=== PATIENT | female | born 1965 | race Caucasian/White ===

== ENCOUNTER 2017-09-05 17:22 | Emergency (ER) | payer OTHER, MEDICAID ==
[~2017-09-05] VITALS: Ht 165.1 cm; Wt 145.9 kg
[~2017-09-05 17:22] MED LIST: GABA300C5 PO; LABE100T2 PO; LEVO50TA4 PO; LISI20TA PO; METF500T PO
[2017-09-05 17:25] VITALS: BP 173/74; PULSE 83; RESP 14; TEMP 98.4; O2SAT 97
[2017-09-05 17:52] LABS: AUTOMATED NEUTROPHIL # 3.9 TH/MM3 (1.8-7.7); BASOPHIL # 0.1 TH/MM3 (0-0.2); BASOPHIL % 0.9 % (0.0-2.0); EOSINOPHIL # 0.2 TH/MM3 (0-0.4); HEMATOCRIT 39.2 % (35.0-46.0); HEMOGLOBIN 13.1 GM/DL (11.6-15.3); LYMPH % 37.5 % (9.0-44.0); LYMPHOCYTE # 2.8 TH/MM3 (1.0-4.8); MEAN CELL VOLUME 88.6 FL (80.0-100.0); MEAN CORPUSCULAR HEMOGLOBIN 29.6 PG (27.0-34.0); MEAN CORPUSCULAR HGB CONC 33.4 % (32.0-36.0); MEAN PLATELET VOLUME 8.8 FL (7.0-11.0); MONO % 7.3 % (0.0-8.0); MONOCYTE # 0.6 TH/MM3 (0-0.9); NEUT % 51.3 % (16.0-70.0); PLATELET COUNT 312 TH/MM3 (150-450); RED BLOOD COUNT 4.42 MIL/MM3 (4.00-5.30); WHITE BLOOD COUNT 7.6 TH/MM3 (4.0-11.0)
[2017-09-05 18:06] LABS: BICARBONATE 26.5 MEQ/L (21.0-32.0); CREATININE 1.33 MG/DL (0.50-1.00)
[2017-09-05] MEDS ORDERED: AUGM875T3 PO (20:15)
--- NOTE | 2017-09-05 20:20 | PD ---
HPI Chief Complaint: Skin Problem Time Seen by Provider: 20:04 Travel History International Travel<30 days: No Contact w/Intl Traveler<30days: No Traveled to known affect area: No History of Present Illness HPI 52-year-old white female presents to emergency department concern over an infection in her dog bite which she sustained over . She was initially seen at [facility] and it was sent to [place] to have a plastic surgeon repair her wound. The patient states now she had seen her doctor last week and was placed on doxycycline because she felt the wound was getting infected because it was becoming tender and swollen. She is a diabetic and takes metformin. Her sugars have been normal. She denies any fever or chills. No drainage. She states that her doctor felt that she may need to have an admission if her symptoms do not improve. PFSH Past Medical History Anxiety: Yes Depression: Yes Cancer: No Cardiovascular Problems: Yes Diabetes: Yes Endocrine: Yes Gastrointestinal Disorders: Yes Genitourinary: No Hypertension: Yes Immune Disorder: No Musculoskeletal: Yes Neurologic: No Psychiatric: Yes (ok now) Reproductive: No Respiratory: Yes Sleep Apnea: Yes (c-pap) Thyroid Disease: Yes Ulcer: Yes : 3 Past Surgical History Section: Yes Other Surgery: Yes (NECK SX) Social History Alcohol Use: No Tobacco Use: No Substance Use: No Allergies-Medications (Allergen,Severity, Reaction): Coded Allergies: No Known Allergies (Verified Allergy, Unknown, 08/23/17) Reported Meds & Prescriptions Reported Meds & Active Scripts Active Augmentin (Amoxicillin-Clavulanate) 875-125 Mg Tab 1 Tab PO BID Levothyroxine (Levothyroxine Sodium) 50 Mcg Tab 50 Mcg PO DAILY Lisinopril-Hctz 20-12.5 Mg Tab 1 Tab PO DAILY Metformin (Metformin HCl) 500 Mg Tab 500 Mg PO BIDPC With meals Reported Gabapentin 300 Mg Cap 300 Mg PO BID Labetalol (Labetalol HCl) 100 Mg Tab 100 Mg PO BID Review of Systems General / Constitutional: No: Fever Eyes: No: Visual changes HENT: No: Headaches Cardiovascular: No: Chest Pain or Discomfort Respiratory: No: Shortness of Breath Gastrointestinal: No: Abdominal Pain Genitourinary: No: Dysuria Musculoskeletal: No: Pain Skin: No Rash Neurologic: No: Weakness Psychiatric: No: Depression Endocrine: No: Polydipsia Hematologic/Lymphatic: No: Easy Bruising Physical Exam Narrative GENERAL: Well-developed, well-nourished in no acute distress. Nontoxic appearing. HEAD: Patient has a healing laceration to her right lower lip from a dog bite. The skin is hypertrophied. There is minimal erythema. Mild tenderness. No fluctuance or pointing. There is no drainage. I see no evidence of any surrounding erythema. EYES: Pupils equal round and reactive. Extraocular motions intact. No scleral icterus. No injection or drainage. ENT: TMs clear without erythema. The external auditory canals clear. Nose: clear . Posterior pharynx is pink and moist. No tonsillar edema or exudate. Uvula midline. Airway patent. NECK: Trachea midline.Supple, nontender, moves head freely. No central bony tenderness or spasm. CARDIOVASCULAR: Regular rate and rhythm without murmurs, gallops, or rubs. RESPIRATORY: Clear to auscultation. Breath sounds equal bilaterally. No wheezes , rales, or rhonchi. GASTROINTESTINAL: Abdomen soft, non-tender, nondistended. No hepato-splenomegaly , or palpable masses. No guarding. EXTREMITIES: No clubbing, cyanosis, or edema. No joint tenderness, effusion, or edema noted. BACK: Nontender without deformity or crepitance. No flank tenderness. Data Data Last Documented VS Vital Signs Date Time Temp Pulse Resp B/P (MAP) Pulse Ox O2 Delivery O2 Flow Rate FiO2 09/05/17 17:25 98.4 83 14 173/74 (107) 97 Orders Orders Complete Blood Count With Diff (09/05/17 17:28) Basic Metabolic Panel (Bmp) (09/05/17 17:28) Ed Discharge Order (09/05/17 20:14) Labs Laboratory Tests Test 09/05/17 17:10 White Blood Count 7.6 TH/MM3 Red Blood Count 4.42 MIL/MM3 Hemoglobin 13.1 GM/DL Hematocrit 39.2 % Mean Corpuscular Volume 88.6 FL Mean Corpuscular Hemoglobin 29.6 PG Mean Corpuscular Hemoglobin Concent 33.4 % Red Cell Distribution Width 14.0 % Platelet Count 312 TH/MM3 Mean Platelet Volume 8.8 FL Neutrophils (%) (Auto) 51.3 % Lymphocytes (%) (Auto) 37.5 % Monocytes (%) (Auto) 7.3 % Eosinophils (%) (Auto) 3.0 % Basophils (%) (Auto) 0.9 % Neutrophils # (Auto) 3.9 TH/MM3 Lymphocytes # (Auto) 2.8 TH/MM3 Monocytes # (Auto) 0.6 TH/MM3 Eosinophils # (Auto) 0.2 TH/MM3 Basophils # (Auto) 0.1 TH/MM3 CBC Comment DIFF FINAL Differential Comment Blood Urea Nitrogen 21 MG/DL Creatinine 1.33 MG/DL Random Glucose 112 MG/DL Calcium Level 9.0 MG/DL Sodium Level 140 MEQ/L Potassium Level 3.8 MEQ/L Chloride Level 107 MEQ/L Carbon Dioxide Level 26.5 MEQ/L Anion Gap 7 MEQ/L Estimat Glomerular Filtration Rate 42 ML/MIN MDM Medical Decision Making Medical Screen Exam Complete: Yes Emergency Medical Condition: Yes Medical Record Reviewed: Yes Differential Diagnosis MDM: High Differential diagnoses: Abscess, folliculitis, cellulitis, lymphangitis, abrasion, contact dermatitis, infected dog bite Narrative Course Patient's laboratory tests have been reviewed. Her CBC and chemistry are within limits. Her exam does not reveal any obvious gross infection. I've agreed to put her on Augmentin. I do not believe any additional imaging or testing is a car at this time. She is encouraged to follow-up with her plastic surgeon tomorrow for recheck. Recheck dog bite Diagnosis Primary Impression: recheck dog bite Patient Instructions: General Instructions Departure Forms: Tests/Procedures, Work Release Special Instructions: No work 09/06/17 Additional Instructions: Rest. Warm compresses. Tylenol or Advil. Augmentin. Follow-up with your plastic surgeon tomorrow. Med/Other Pt SpecificInfo: Prescription(s) given Scripts Amoxicillin-Clavulanate (Augmentin) 875-125 Mg Tab 1 TAB PO BID for Infection, #20 TAB 0 Refills Prov: Melinda Shields MD 09/05/17 Disposition: 01 DISCHARGE HOME Condition: Stable Ti Barrett Sep 05, 2017 20:20
== END 2017-09-05 20:40 | disposition home or self-care (01) ==
LOC: NEPD 17:22
DX: S01.551D Open bite of lip, subsequent encounter (principal); E11.9 Type 2 diabetes mellitus without complications; I10 Essential (primary) hypertension; W54.0XXD Bitten by dog, subsequent encounter; Z79.84 Long term (current) use of oral hypoglycemic drugs
CPT/HCPCS: 80048; 85025; 99283

== ENCOUNTER 2018-05-15 06:02 | Observation (INO) ==
[2018-05-15] MEDS ORDERED: Sodium Chlor 0.9% Inj 250 ML ONE (06:52)
[2018-05-15] MEDS ORDERED: Chlorhexidine Gluconate 2% 1 Pack (2 Cloths) TOPICAL SCH (07:15)
[2018-05-15] MEDS ORDERED: Metoprolol Tartrate 25 MG Tablet PO SCH (07:15)
[2018-05-15] MEDS ORDERED: Propofol Inj 500 MG/50 ML Vial ONE ×2 (07:17→09:36)
[2018-05-15] MEDS ORDERED: Famotidine PF Inj 20 MG/2 ML Vial ONE (07:49)
[2018-05-15] MEDS ORDERED: Vancomycin Inj 1,000 MG in Sodium Chlor 0.9% Inj 250 ML IV.SIG SCH (08:00)
[2018-05-15] MEDS ORDERED: Sodium Chlor 0.9% Inj 500 ML IV.SIG SCH (08:00)
[2018-05-15] MEDS ORDERED: Ketamine Inj 50 MG/5 ML Syringe IV.PUSH ONE ×2 (08:08→09:38)
[2018-05-15] MEDS ORDERED: Bupivacaine/Epinephrine 0.5% Inj 50 ML Vial ONE (08:35)
[2018-05-15] MEDS ORDERED: Gelatin Size 100 Topical Foam ONE (08:36)
[2018-05-15] MEDS ORDERED: Thrombin Topical Soln 5,000 UNIT Vial TOPICAL ONE (08:36)
[2018-05-15] MEDS ORDERED: Dextrose 50% in Water 50 ML Vial IV.PUSH PRN (11:38)
[2018-05-15] MEDS ORDERED: Zolpidem Tartrate 5 MG Tablet PO PRN (11:39)
[2018-05-15] MEDS ORDERED: Acetaminophen 325 MG Tablet PO PRN (11:39)
[2018-05-15] MEDS ORDERED: Morphine Inj 4 MG/ML Vial IV.PUSH PRN (11:39)
[2018-05-15] MEDS ORDERED: Menthol 5.8 MG Lozenge BUCCAL PRN (11:39)
[2018-05-15] MEDS ORDERED: Aluminum/Magnesium/Simethacone Susp 30 ML UDC PO PRN (11:39)
[2018-05-15] MEDS ORDERED: Bisacodyl 10 MG Supp RECTAL PRN (11:39)
--- NOTE | 2018-05-15 11:47 | P.OP ---
- Preoperative Diagnosis (1) Degenerative cervical spinal stenosis (2) Cervical radiculopathy (3) Chronic neck pain Date of procedure: 05/15/18 Procedure: Anterior cervical C5-6 microdiscectomy with interbody fusion; anterior C5-6 cervical plate placement; removal of his C6-7 cervical plate; C5-6 interbody cage placement; microsurgical technique Anesthesia: CHRISTIN Surgeon: Saul Lindsay MD Shoveler: Charla Delgado Estimated blood loss (mL): 50 Operation and Findings: Following administration of general endotracheal anesthesia, the patient received a gram of vancomycin and Decadron 10 mg intravenously. Sequential compression devices were placed in supine position on a Brodie table and all pressure points adequately padded. The head secured in a donut and anterior cervical region then shaved and prepped with Chloraprep and sterilely draped with Ioban along with the usual sterile draping. A transverse skin incision on the left side of the neck was then made after infiltrating the skin with 0.5% Marcaine with epinephrine solution extending down through the platysma. At the anterior border of the sternocleidomastoid further dissection was undertaken developing a plane between the carotid sheath laterally and the trachea esophagus medially. The prevertebral fascia was exposed and dissected out. The medial attachments of the longus colli muscles were detached and a self- retaining retractor used for exposure. The C5-6 disc space was localized with a marking the disc space and using lateral fluoroscopy. [place] distraction screws 14 mm length were placed one in the C5 and one in the C6 body interbody distraction and exposure. There was significant disc degeneration with disc height collapse and cervical plate from the previous surgery noted at the C6-7 level. The plate screw locking mechanisms were then disengaged and the screw was removed along with the plate and solid C6-7 interbody fusion was evident. At the C5-6 level the osteophytes were resected with a Leksell and annulus incised with a 15 blade and further dissection undertaken using microtechnique with microscope magnification. Diskectomy was undertaken with pituitaries and the endplates were also decorticated with curettes and drill bit. And more posteriorly there was disk osteophyte complex compressing the thecal sac along with a significant uncovertebral joint hypertrophy with foraminal stenosis which was decompressed along with removal of the posterior longitudinal ligament. The foramen was decompressed bilaterally using a Kerrison's and palpation with a nerve hook, the exiting nerve roots were felt to be free. The area was then copiously irrigated. I then placed a Peek cage packed with local autograft bone at the C5-6 interspace under fluoroscopy guidance. [place] distraction pins were removed and the holes plugged with Gelfoam for hemostasis. In order to facilitate the fusion and provide stabilization, a Precision spine cervical plate was then placed with two 14 mm variable angle screws in the C5 body and two 14 mm screws in the C6 body. The plate screw locking mechanism was then engaged. AP and lateral fluoroscopy confirmed good placement of the construct and the retractor was then removed. Muscular bleeding points were cauterized with bipolar cautery and Gelfoam was then also used for hemostasis which was removed. The platysma was then approximated using 3-0 Vicryl interrupted stitches and 3-0 Vicryl subcuticular stitch also placed in an interrupted fashion, and final skin closure was with Mastisol and Steri- Strips. Sterile dressing was then applied. The patient was then extubated and taken to the recovery room. There are no intraoperative complications and all sponge and needle counts were correct at the end of procedure. Estimated blood loss was about 50 cc. The patient did undergo intraoperative neurologic monitoring which remained stable throughout the surgery.
[2018-05-15] MEDS ORDERED: Sod Chloride 0.9% Inj 1,000 ML IV.SIG ONE (12:00)
[2018-05-15] MEDS ORDERED: Lidocaine PF 1% Inj 5 ML Syringe INFILTRATN ONE (12:00)
[2018-05-15] MEDS ORDERED: Phenylephrine/NS 1000 MCG/10ML Syringe IV.PUSH ONE (12:00)
[2018-05-15] MEDS ORDERED: Succinylcholine Inj 100 MG/5 ML Syringe IV.PUSH ONE (12:00)
[2018-05-15] MEDS ORDERED: fentaNYL Citrate Inj 100 MCG/2 ML Ampul ONE (12:23)
--- NOTE | 2018-05-15 13:31 | XR ---
EXAM DATE: 05/15/2018 1:07 PM EDT AGE/SEX: 52 years / Female INDICATIONS: Hardware removal from C6-C7. Post-op C5-C6 anterior cervical fusion. CLINICAL DATA: This is the patient's initial encounter. Patient reports that signs and symptoms have been present for 1 day and indicates a pain score of Nonresponsive. MEDICAL/SURGICAL HISTORY: Non-responsive. Fusion, cervical. COMPARISON: [facility] [place] CERVICAL AP ONLY, 04/07/2011. . FINDINGS: Hardware has been removed at C6-C7. New fusion by history is present at C5-C6. Fluoroscopic spot films does not cover the entire cervical spine. CONCLUSION: Hardware as above. Dedicated lateral C-spine would be of benefit Electronically signed by: David Allen MD 05/15/2018 1:30 PM EDT
[2018-05-15] MEDS: Gabapentin 300 MG Capsule PO SCH ×2 (14:41→18:16)
[2018-05-15] MEDS: Sod Chloride 0.9% Inj 1,000 ML IV.SIG SCH (17:41)
[2018-05-15] MEDS: Insulin NovoLIN Regular Correctional Sugar Inj SQ SCH ×2 (18:15)
[2018-05-15] MEDS: Labetalol 100 MG Tablet PO SCH (20:53)
[2018-05-15] MEDS: Senna/Docusate Sodium 8.6/50 MG Tablet PO SCH (20:53)
[2018-05-15] MEDS ORDERED: IPRATROPIUM BROMIDE NASAL SCH (21:00)
[2018-05-16] MEDS: Insulin NovoLIN Regular Correctional Sugar Inj SQ SCH ×2 (00:58→06:29)
[2018-05-16 05:50] VITALS: RESP 18
[2018-05-16] MEDS ORDERED: Levothyroxine 50 MCG Tablet PO SCH (06:00)
[2018-05-16 09:00] VITALS: BP 98/57; PULSE 84; TEMP 98.4; O2SAT 93
[2018-05-16] MEDS ORDERED: Non-Formulary Drug (Lisinopril-Hydrochlorothiazide [Lisinopril-Hydrochlorothiazide] 1 TAB) PO SCH (09:00)
[2018-05-16] MEDS ORDERED: (Empagliflozin [Jardiance] 10 MG) PO SCH (09:00)
[2018-05-16] MEDS ORDERED: (Linaclotide [Linzess] 72 MCG) PO SCH (09:00)
[2018-05-16] MEDS ORDERED: Lisinopril 20 MG Tablet PO SCH (09:00)
[2018-05-16] MEDS: Sod Chloride 0.9% Inj 1,000 ML IV.SIG SCH (09:49)
[2018-05-16] MEDS: Labetalol 100 MG Tablet PO SCH (09:51)
[2018-05-16] MEDS: Senna/Docusate Sodium 8.6/50 MG Tablet PO SCH (09:51)
[2018-05-16] MEDS: Gabapentin 300 MG Capsule PO SCH (09:51)
--- NOTE | 2018-05-16 10:00 | P.PNNS ---
Subjective Interval history: Pt awake and alert. States incisional pain controlled. No radiculopathy or paresthesias in UEs. Pt states she is feeling more steady with ambulating. Pt wants to go home. Physical Exam Vital signs: Vital Signs 05/15/18 12:08 05/15/18 12:15 05/15/18 12:30 Temperature 98.5 F Pulse Rate 88 85 85 Respiratory Rate 21 20 18 Blood Pressure 145/81 H 154/84 H 151/77 H Pulse Oximetry 96 95 94 L 05/15/18 12:45 05/15/18 13:00 05/15/18 13:30 Temperature Pulse Rate 84 85 85 Respiratory Rate 20 20 20 Blood Pressure 150/71 H 148/71 H 149/71 H Pulse Oximetry 94 L 94 L 94 L 05/15/18 14:00 05/15/18 15:00 05/15/18 16:00 Temperature 98.4 F 99.3 F Pulse Rate 87 90 87 Respiratory Rate 19 19 19 Blood Pressure 152/77 H 165/78 H 165/78 H Pulse Oximetry 94 L 94 L 94 L 05/15/18 18:00 05/15/18 20:00 05/16/18 00:00 Temperature 98.7 F 98.3 F 98.4 F Pulse Rate 104 H 107 H 100 H Respiratory Rate 24 20 20 Blood Pressure 160/81 H 168/78 H 138/65 Pulse Oximetry 96 98 95 05/16/18 04:00 05/16/18 08:00 Temperature 97.1 F L 98.4 F Pulse Rate 113 H 84 Respiratory Rate 18 18 Blood Pressure 114/77 98/57 L Pulse Oximetry 96 93 L Intake & Output 05/15/18 05/16/18 05/16/18 18:59 06:59 18:59 Intake Total 2576 / 2576 200 / 200 Output Total 3650 / 3650 Balance -1074 / -1074 200 / 200 Weight 149.5 kg Intake: IV 1676 / 1676 200 / 200 NS + KCl 20 mEq Inj 1,000 ML @ 576 / 576 100 mls/hr IV.CONT .Q10H [facility] Rx #:[id number] LR 1000 mL Inj 1,000 ML @ 30 1000 / 1000 mls/hr IV.SIG .Q24H [facility] Rx#: [id number] Ancef Inj 1,000 MG In NS Inj 100 / 100 200 / 200 100 ML @ 200 mls/hr IV.SIG Q8H [facility] Rx#:[id number] Anesthesia Amount 900 / 900 Output: Estimated Blood Loss 50 / 50 Urine Amount (Catheter) 3600 / 3600 Indwelling Urethral Catheter 3600 / 3600 Other: # Voids 3 2 - Constitutional no acute distress, obese, cooperative - Routine HEENT Exam Head: Present: normocephalic, atraumatic Eye: Present: PERRL. Absent: conjunctival icterus ENT: Present: oropharynx clear - Routine Neck Exam Present: trachea midline - Routine Respiratory Exam Present: CTA bilaterally. Absent: respiratory distress, rhonchi, wheezes - Routine Cardiovascular Exam Present: RRR, S1, S2. Absent: murmur - Routine Abdominal Exam Present: soft, normoactive bowel sounds. Absent: tenderness - Routine Extremities Exam Present: cyanosis - Routine Skin Exam Absent: cyanosis, erythema - Routine Neurological Exam Present: alert, oriented X3, moving all extremities, normal speech. Absent: sensory deficit, motor deficit, altered mental status - Routine Psychiatric Exam Present: normal affect, cooperative, good insight, good judgment. Absent: agitated - Urinary Catheter Management Indwelling Urethral Catheter Cath placed during this visit: yes, but has since been removed by the nurse Reason for continuing: Other continuation reason Insertion date: 05/15/18 Insertion time: 08:45 Removal date: 05/15/18 Removal time: 18:00 Assessment and Plan - Assessment (1) Degenerative cervical spinal stenosis Code(s): M48.02 - Spinal stenosis, cervical region Status: Acute (2) Cervical radiculopathy Code(s): M54.12 - Radiculopathy, cervical region Status: Acute (3) Chronic neck pain Code(s): M54.2 - Cervicalgia; G89.29 - Other chronic pain Status: Acute - Plan 52 y/o FM s/p Anterior cervical C5-6 microdiscectomy with interbody fusion; anterior C5-6 cervical plate placement; removal of his C6-7 cervical plate; C5- 6 interbody cage placement; microsurgical technique. P: Pt doing well post op. D/C home. Discussed restrictions. Discussed incision care.
== END 2018-05-16 13:08 | disposition home or self-care (01) ==
LOC: INTOOBSV 06:02 → HSDI 06:02 → N05 16:49 → EDSTATUS 05-18 08:30
PROVIDERS: ADMIT Neurological Surgery; ATTEND Neurological Surgery

== ENCOUNTER 2018-08-27 18:53 | Inpatient (IN) ==
--- NOTE | 2018-08-27 19:19 | ED ---
HPI General Chief complaint: Abdominal Pain Stated complaint: Abd pain right side/nauseous Time Seen by Provider: 08/27/18 19:07 History of Present Illness HPI narrative: 53 y/o female with history of HTN, DM, hypothyroidism and GERD presents to the ED today from home complaining of RUQ abdominal pain and nausea. Pt reports symptoms began 5 days ago as mild, diffuse abdominal pain with associated right ear ache and sore throat. However over the past 2 days the abdominal pain has worsened and localized to the RUQ with radiation to the right flank. Pt describes this pain as a stabbing, 8/10 pain with no alleviating factors that worsens with eating and activity. Pain is not affected by bowel movements. Pt denies any fever, chills, chest pain, shortness of breath , vomiting, diarrhea, constipation, hematuria, dysuria, or hematochezia. Pt denies any history of similar symptoms. Pt surgical history is significant for multiple C sections and a tubal ligation. Related Data Home Medications Medication Instructions Recorded Confirmed atorvastatin 10 mg PO DAILY 05/09/18 08/27/18 cholecalciferol (vitamin D3) 1,000 unit PO DAILY 05/09/18 08/27/18 [Vitamin D3] cyanocobalamin (vitamin B-12) 500 mcg PO DAILY 05/09/18 08/27/18 [Vitamin B-12] cyclobenzaprine 10 mg PO TID PRN 05/09/18 08/27/18 doxycycline hyclate 100 mg PO DAILY 05/09/18 08/27/18 empagliflozin [Jardiance] 10 mg PO DAILY 05/09/18 08/27/18 gabapentin 300 mg PO TID 05/09/18 08/27/18 ipratropium bromide 2 spray INTRANASAL BID 05/09/18 08/27/18 labetalol 100 mg PO BID 05/09/18 08/27/18 levothyroxine 50 mcg PO DAILY 05/09/18 08/27/18 lisinopril-hydrochlorothiazide 1 tab PO DAILY 05/09/18 08/27/18 metformin 500 mg PO BID 05/09/18 08/27/18 tramadol 50 mg PO Q4-6H PRN 05/09/18 08/27/18 Allergies Allergy/AdvReac Type Severity Reaction Status Date / Time No Known Allergies Allergy Verified 08/27/18 19:02 Review of Systems Constitutional Denies chills and Denies fever(s) ENT Denies ear discharge, Denies hearing loss and Reports sore throat Cardiovascular Denies chest pain, Denies syncope, Denies edema and Denies palpitations Respiratory Denies cough, Denies dyspnea and Denies dyspnea on exertion Gastrointestinal Denies diarrhea, Reports nausea and Denies vomiting Genitourinary Denies hematuria, Denies dysuria and Denies flank pain Musculoskeletal Denies numbness and Denies tingling Neurologic Denies dizziness and Denies headache(s) [facility] Social History Social History Substance History: No History of Abuse Second Hand Smoke Exposure: No Smoking Status: Never smoker How Often Do You Have a Drink Containing Alcohol: Never Recent Travel in [facility] [[email or web address]] within the Last 8 Weeks: No Recent Out of Country Travel within the Last 8 Weeks: No Immunization History Tetanus Immunization: Unsure Exam Narrative Exam Narrative: GENERAL: Well appearing, morbidly obese female in no acute distress HEENT: Conj anicteric non erythematous. Bilateral TMs clear with no effusion or erythema, Oropharynx without erythema or exudate. Moist mucous membranes NECK: Supple, no JVD CARDIO: Regular rate and rhythm without murmurs rubs or gallops PULM: Clear to auscultation bilaterally with no wheezes, rales, or rhonchi ABDOMEN: Soft, nondistended abdomen with normal bowel sounds. Diffuse mild tenderness to palpation, most exquisite over the RUQ. No rebound or guarding BACK: Mild right sided CVA tenderness MSK: No deformities, no clubbing, no edema, no cyanosis NEURO: Cranial nerves grossly intact, no obvious motor deficits PSYCH: Alert and orientated x3; Normal judgment and appropiate affect GI Inspection: normal to inspection Palpation: soft, no guarding, not rigid and tender in the RUQ; not in the epigastrum, not in the LLQ, not in the RLQ, not in the LUQ, not at McBurney's point, not suprapubicly, Ta's sign negative and with no rebound tenderness Auscultation: normal bowel sounds Back/Spine/Pelvis Back: CVA tenderness (The patient has right-sided CVA tenderness on palpation.) Course Consultations Consultation #1: The patient's case including history, pertinent physical examination findings, and laboratory studies were discussed with Dr. Miller. He agreed to admit the patient for evaluation and plans to take the patient to the operating room in the morning. Time: 21:52 Initial Documented Vital Signs Temperature 97.3 F L 08/27/18 19:00 Pulse Rate 101 H 08/27/18 19:00 Respiratory Rate 18 08/27/18 19:00 Blood Pressure 221/95 H 08/27/18 19:00 Pulse Oximetry 98 08/27/18 19:00 Last Documented Vital Signs Temperature 97.3 F L 08/27/18 19:00 Pulse Rate 90 08/27/18 21:30 Respiratory Rate 17 08/27/18 21:30 Blood Pressure 145/65 H 08/27/18 21:30 Pulse Oximetry 97 08/27/18 21:30 Medical Decision Making MDM Narrative Medical decision making narrative: 53 y/o female with h/o HTN, DM, hyperlipid, GERD, and hypothyroidism presented to the ED today for RUQ pain and nausea. Symptoms progressed over the last 2 days to a stabbing 8/10 RUQ pain with radiation to the back. She reports pain is worse with food and therefore has had poor oral intake of both fluids and solids. Pt denied ny fever, chills, vomiting, chest pain, SOB, or any changes in bowels or bladder. Pt denies any history of similar symptoms or any history of abdominal surgery other than 3 C- sections and a tubal ligation. Upon arrival, vital signs were BP 221/95, HR 101 , RR 18, T 97.3, O2 96 on room air. On exam patient was well appearing and in no acute distress. Abdominal exam revealed mild diffuse tenderness, worse over the RUQ with accompanying right CVA tenderness. Cardiopulmonary exam was unremarkable. IV Morphine was administered for pain management and IV Zofran for nausea. IV 0.9% NS bolus was given due to her poor oral intake over the past few days. CBC , CMP, Lipase, coagulation studies, magnesium, CRP, UA, CXR, and EKG were initially ordered to further evaluate the patient's symptoms. CBC revealed mild leukocytosis 12.6 with left shift with no anemias or platelet abnormalities. CMP revealed decreased GFR of 62 stable to 1 year, creatine 0.94, and elevated glucose of 115 Troponin was negative. C-reactive protein elevated to 1.10 UA revealed small amounts of mucus without significant RBCs, WBCs, or bacteria. Culture was not indicated Coagulation studies within normal limits Magnesium within normal limits I, Dr. Alvares, have reviewed the medical student's documentation, and I am in agreement, met with the patient face to face, made the diagnosis, and the medical decision making was done by me. The patient was initially evaluated by Adam, the MS HARRY. Please see their complete history and physical. *My assessment and Findings: The patient presents with a history of abdominal pain that is been gradually worsening over the last 2 days. She reports that it worsens with eating. She reports having associated nausea without vomiting. The patient reports his pain is sharp in character. The patient's exam is remarkable for right upper quadrant abdominal pain. The patient does arrive hypertensive, however she reports missing her evening dose of blood pressure medication. She reports that she was afraid to take it related to nausea. Patient's initial blood pressure was 221/95, however after resting in the room, prior to pain medication even being administered the patient's blood pressure came down to 176 systolic and then after pain medication down to 146 systolic. During the course of the patient's emergency department visit, the patient's history, examination, and differential diagnosis were reviewed with the patient. The patient was placed on a continuing education dean with oximetry and frequent blood pressure monitoring. The patient had IV access obtained and blood work sent for analysis. The patient was initially provided normal saline of 500 mL bolus x1, Zofran 4 mg IV, morphine 4 mg IV. The patient's diagnostic studies were reviewed and remarkable for a leukocytosis with a white count of 12.6 with a left shift, neutrophil predominance of 75.8, PT 9.5, PTT 26.6, chemistry is remarkable for a GFR of 62 , glucose 115, troponin I less than 0.02, C-reactive protein 1.10, lipase within normal limits, urinalysis shows 500 glucose, rare bacteria. CT scan of the abdomen and pelvis shows distended gallbladder containing multiple stones with suspected wall edema and mild surrounding inflammation. Findings are suspicious for acute cholecystitis, mild atherosclerotic disease is also noted. The patient's case was discussed with the surgeon, Dr. Miller. He was agreeable with the plan for the patient to have Zosyn administered. He will admit the patient for continued evaluation and treatment. The patient's results were discussed with the patient, including the plan of care. I explained that further testing and/ or monitoring is indicated based on the patient's history, examination, and/ or laboratory findings. Therefore, I recommended admission for additional evaluation. The patient expressed understanding and was agreeable with this plan. The patient was admitted to the hospital in stable condition and sent to a bed under the care of Dr. Miller, the general surgeon. Medical Screen Exam Complete: Yes Emergency Medical Condition: Yes Medical Records Medical records reviewed: Yes I reviewed the patient's medical records. Lab Data Lab results reviewed: Yes I reviewed the patient's lab results. Result diagrams: 08/27/18 19:27 08/27/18 19:20 POC Results POC Urine Results Negative Lab Results 08/27/18 08/27/18 08/27/18 Range/Units 19:20 19:27 19:27 WBC 12.6 H (4.0-11.0) th/mm3 RBC 4.77 (4.00-5.30) mil/mm3 Hgb 14.0 (11.6-15.3) gm/dL Hct 42.0 (35.0-46.0) % MCV 88.0 (80.0-100.0) fL MCH 29.4 (27.0-34.0) pg MCHC 33.4 (32.0-36.0) % RDW 14.0 (11.6-17.2) % Plt Count 361 (150-450) th/mm3 MPV 8.6 (7.0-11.0) fL Neut % (Auto) 75.8 H (16.0-70.0) % Lymph % (Auto) 16.1 (9.0-44.0) % Cannon % (Auto) 5.5 (0.0-8.0) % Eos % (Auto) 2.1 (0.0-4.0) % Baso % (Auto) 0.5 (0.0-2.0) % Neut # (Auto) 9.5 H (1.8-7.7) th/mm3 Lymph # (Auto) 2.0 (1.0-4.8) th/mm3 Cannon # (Auto) 0.7 (0.0-0.9) th/mm3 Eos # (Auto) 0.3 (0.0-0.4) th/mm3 Baso # (Auto) 0.1 (0.0-0.2) th/mm3 WBC Differential . Differential Comment Auto diff final PT 9.5 L (9.8-11.6) sec INR 0.9 Ratio APTT 26.6 (23.4-31.7) sec Sodium 137 (136-145) meq/L Potassium 3.9 (3.5-5.1) meq/L Chloride 102 (98-107) meq/L Carbon Dioxide 28.8 (21.0-32.0) meq/L Anion Gap 6 (5-15) meq/L BUN 14 (7-18) mg/dL Creatinine 0.94 (0.50-1.00) mg/dL Estimated GFR 62 L (>89) mL/min Random Glucose 115 H (74-106) mg/dL Calcium 9.1 (8.5-10.1) mg/dL Magnesium 2.2 (1.5-2.5) mg/dL Total Bilirubin 0.5 (0.2-1.0) mg/dL AST 22 (15-37) U/L ALT 35 (10-53) U/L Alkaline Phosphatase 113 (45-117) U/L Troponin I Less than 0.02 L (0.02-0.05) ng/mL C-Reactive Protein 1.10 H (0.00-0.30) mg/dL Total Protein 8.3 H (6.4-8.2) g/dL Albumin 3.8 (3.4-5.0) g/dL Lipase 143 (73-393) U/L Urine Color (Yellw/Straw) Urine Clarity (Clear) Urine pH (5.0-8.5) Ur Specific [place] (1.002-1.035) Urine Protein (Neg-Trace) mg/dL Urine Glucose (UA) (Negative) mg/dL Urine Ketones (Negative) mg/dL Urine Occult Blood (Negative) Urine Nitrate (Negative) Urine Bilirubin (Negative) Urine Urobilinogen (Less than 2) mg/dL Ur Leukocyte Esterase (Negative) Urine RBC (0-3) /hpf Urine WBC (0-5) /hpf Ur Squamous Epith Cells (0-5) /hpf Urine Bacteria (None) /hpf Urine Mucus (Occasional) /lpf Micro UA Comment Ur Microscopic Review Urine Culture Comments 08/27/18 Range/Units 19:47 WBC (4.0-11.0) th/mm3 RBC (4.00-5.30) mil/mm3 Hgb (11.6-15.3) gm/dL Hct (35.0-46.0) % MCV (80.0-100.0) fL MCH (27.0-34.0) pg MCHC (32.0-36.0) % RDW (11.6-17.2) % Plt Count (150-450) th/mm3 MPV (7.0-11.0) fL Neut % (Auto) (16.0-70.0) % Lymph % (Auto) (9.0-44.0) % Cannon % (Auto) (0.0-8.0) % Eos % (Auto) (0.0-4.0) % Baso % (Auto) (0.0-2.0) % Neut # (Auto) (1.8-7.7) th/mm3 Lymph # (Auto) (1.0-4.8) th/mm3 Cannon # (Auto) (0.0-0.9) th/mm3 Eos # (Auto) (0.0-0.4) th/mm3 Baso # (Auto) (0.0-0.2) th/mm3 WBC Differential Differential Comment PT (9.8-11.6) sec INR Ratio APTT (23.4-31.7) sec Sodium (136-145) meq/L Potassium (3.5-5.1) meq/L Chloride (98-107) meq/L Carbon Dioxide (21.0-32.0) meq/L Anion Gap (5-15) meq/L BUN (7-18) mg/dL Creatinine (0.50-1.00) mg/dL Estimated GFR (>89) mL/min Random Glucose (74-106) mg/dL Calcium (8.5-10.1) mg/dL Magnesium (1.5-2.5) mg/dL Total Bilirubin (0.2-1.0) mg/dL AST (15-37) U/L ALT (10-53) U/L Alkaline Phosphatase (45-117) U/L Troponin I (0.02-0.05) ng/mL C-Reactive Protein (0.00-0.30) mg/dL Total Protein (6.4-8.2) g/dL Albumin (3.4-5.0) g/dL Lipase (73-393) U/L Urine Color Yellow (Yellw/Straw) Urine Clarity Clear (Clear) Urine pH 5.0 (5.0-8.5) Ur Specific [place] 1.014 (1.002-1.035) Urine Protein Negative (Neg-Trace) mg/dL Urine Glucose (UA) 500 or greater (Negative) mg/dL Urine Ketones Negative (Negative) mg/dL Urine Occult Blood Negative (Negative) Urine Nitrate Negative (Negative) Urine Bilirubin Negative (Negative) Urine Urobilinogen Less than 2 (Less than 2) mg/dL Ur Leukocyte Esterase Negative (Negative) Urine RBC Less than 1 (0-3) /hpf Urine WBC 1 (0-5) /hpf Ur Squamous Epith Cells 1 (0-5) /hpf Urine Bacteria Rare H (None) /hpf Urine Mucus Few H (Occasional) /lpf Micro UA Comment Culture not ind Ur Microscopic Review Not Reportable Urine Culture Comments Culture not ind Imaging Data Radiologist's impression: Chest X-Ray 08/27/18 19:20 CONCLUSION: No acute cardiopulmonary abnormality is identified. Abdomen/Pelvis CT 08/27/18 19:57 CONCLUSION: 1. Distended gallbladder containing multiple stones with suspected wall edema and mild surrounding inflammation. Findings are suspicious for acute cholecystitis. 2. Mild atherosclerotic disease. Discharge Plan Discharge Disposition Patient Disposition: ED Admit(ED Internal Use Only) Discharge Order Discharge Orders: ED Use Only Admit Order (Routine); Ordered 08/27/18 Ordered By: Brisa Alvares Discharge Details Diagnosis: Acute cholecystitis Physicians Team ED Provider: Brisa Alvares Primary Care Provider: Erika Lama Attending Provider: Gene Miller Status ED Status: Admitted Observation Patient
[2018-08-27] MEDS ORDERED: Sodium Chlor 0.9% Inj 500 ML IV.SIG ONE (19:20)
[2018-08-27] MEDS ORDERED: Morphine Inj 4 MG/ML Vial IV.PUSH ONE (19:20)
[2018-08-27 19:53] LABS: Baso # (Auto) 0.1 th/mm3 (0.0-0.2); Baso % (Auto) 0.5 % (0.0-2.0); Eos # (Auto) 0.3 th/mm3 (0.0-0.4); Eos % (Auto) 2.1 % (0.0-4.0); Lymph % (Auto) 16.1 % (9.0-44.0); Mean Corpuscular HGB Conc 33.4 % (32.0-36.0); Mean Corpuscular Hemoglobin 29.4 pg (27.0-34.0); Mean Platelet Volume 8.6 fL (7.0-11.0); Mono # (Auto) 0.7 th/mm3 (0.0-0.9); Mono % (Auto) 5.5 % (0.0-8.0); Neut # (Auto) 9.5 th/mm3 (1.8-7.7); Neut % (Auto) 75.8 % (16.0-70.0); Platelet Count 361 th/mm3 (150-450); Red Blood Count 4.77 mil/mm3 (4.00-5.30); White Blood Count 12.6 th/mm3 (4.0-11.0)
--- NOTE | 2018-08-27 19:58 | XR ---
EXAM DATE: 08/27/2018 7:49 PM EST AGE/SEX: 53 years / Female INDICATIONS: Abdominal pain. CLINICAL DATA: This is the patient's initial encounter. Patient reports that signs and symptoms have been present for 4 - 6 days and indicates a pain score of 8/10. MEDICAL/SURGICAL HISTORY: None. section. COMPARISON: [facility] [place], CTA CHEST W 3D RECON, 04/08/2011. [facility] [place], CHEST PA & LAT, 04/08/2011. . FINDINGS: Portable AP view of the chest demonstrates a normal-sized cardiac silhouette. No effusion, consolidat ion, or pneumothorax is identified. The bones and soft tissues demonstrate no acute finding. Cervical spine hardware is present. There is no free air in the visualized upper abdomen. CONCLUSION: No acute cardiopulmonary abnormality is identified. Electronically signed by: Butch Spence MD 08/27/2018 7:56 PM EST
[2018-08-27 19:59] LABS: Bacteria,Urine Rare /hpf; Bilirubin,Urine Negative (Negative); Clarity,Urine Clear (Clear); Color,Urine Yellow (Yellw/Straw); Glucose,Urine (UA) 500 or Greater mg/dL (Negative); Leukocyte Esterase,Urine Negative (Negative); Mucus,Urine Few /lpf (Occasional); Nitrite,Urine Negative (Negative); Specific Gravity,Urine 1.014 (1.002-1.035); Squamous Epithelial Cell,Urine 1 /hpf (0-5)
[2018-08-27 20:08] LABS: Activated Partial Thrombo Time 26.6 sec (23.4-31.7); INR 0.9 Ratio; Prothrombin Time 9.5 sec (9.8-11.6)
[2018-08-27 20:11] LABS: Albumin 3.8 g/dL (3.4-5.0); Anion Gap 6 meq/L (5-15); Aspartate Aminotransferase 22 U/L (15-37); Blood Urea Nitrogen 14 mg/dL (7-18); Calcium 9.1 mg/dL (8.5-10.1); Carbon Dioxide 28.8 meq/L (21.0-32.0); Chloride 102 meq/L (98-107); Glomerular Filtration Rate 62 mL/min (>89); Glucose,Random 115 mg/dL (74-106); Lipase 143 U/L (73-393); Magnesium 2.2 mg/dL (1.5-2.5); Potassium 3.9 meq/L (3.5-5.1); Sodium 137 meq/L (136-145)
[2018-08-27 20:12] LABS: Alanine Aminotransferase 35 U/L (10-53)
[2018-08-27 20:14] LABS: Alkaline Phosphatase 113 U/L (45-117); Total Protein 8.3 g/dL (6.4-8.2)
[2018-08-27] MEDS ORDERED: Piperacil/Tazo 3.375 GM Premix 50 ML IV.SIG ONE (21:33)
--- NOTE | 2018-08-27 21:44 | CT ---
EXAM DATE: 08/27/2018 9:23 PM EST AGE/SEX: 53 years / Female INDICATIONS: Right upper quadrant pain past 5 days. CLINICAL DATA: This is the patient's initial encounter. Patient reports that signs and symptoms have been present for 4 - 6 days and indicates a pain score of 8/10. MEDICAL/SURGICAL HISTORY: Diabetes mellitus type II. Inflammatory bowel disease. Hypertension . GERD Fusion, cervical. section. Tubal ligation. ORAL CONTRAST: No oral contrast ingested. RADIATION DOSE: 31.47 CTDI (mGy) ; Patient body habitus COMPARISON: No prior exams available for comparison. TECHNIQUE: Multiple contiguous axial images were obtained through the abdomen and pelvis following b olus infusion of 95 ml Omnipaque 350 (iohexol) nonionic water-soluble contrast as a single exam dos e. No oral contrast ingested. Using automated exposure control and adjustment of the mA and/or kV ac cording to patient size, radiation dose was kept as low as reasonably achievable to obtain optimal di agnostic quality images. DICOM format image data is available electronically for review and comparis on. FINDINGS: Lower chest: No acute abnormality is identified. Hepatobiliary: No focal liver lesion is identified. Hepatic vasculature demonstrates no abnormality. Gallbladder is distended and contains multiple stones. There is a questionable wall edema and surroun ding inflammation of the adjacent fat. There is a potential stone in the gallbladder neck. Kidneys: No hydronephrosis, stone, or mass. Adrenal Glands: Within normal limits. Spleen: Within normal limits. Pancreas: Within normal limits. Vascular: The aorta is nonaneurysmal. There is mild atherosclerotic disease. Bowel/Mesentery: The stomach and small bowel demonstrate no abnormality. No acute colon abnormality i s seen. There is no free intraperitoneal air or fluid. There is sigmoid diverticulosis. Appendix is n ormal. Abdominal Wall: There is a fat-containing periumbilical hernia. Retroperitoneum: No lymphadenopathy. Bladder: No wall thickening or mass. Reproductive: Within normal limits. Inguinal: No lymphadenopathy or hernia. Musculoskeletal: No acute osseous abnormality is identified. There are degenerative changes of the jacques mbar spine. CONCLUSION: 1. Distended gallbladder containing multiple stones with suspected wall edema and mild surrounding i nflammation. Findings are suspicious for acute cholecystitis. 2. Mild atherosclerotic disease. Electronically signed by: Butch Spence MD 08/27/2018 9:43 PM EST
[2018-08-27] MEDS ORDERED: Dextrose 50% in Water 50 ML Vial IV.PUSH PRN (22:46)
[2018-08-27] MEDS ORDERED: Morphine Sulfate Inj 2 MG/ML Vial IV.PUSH PRN (22:49)
[2018-08-28] MEDS: Sod Chloride 0.9% Inj 1,000 ML IV.CONT SCH ×3 (00:40→19:05)
[2018-08-28] MEDS: Ketorolac Inj 30 MG/ML (IVP) Vial IV.PUSH PRN ×4 (00:40→22:23)
[2018-08-28] MEDS: Insulin NovoLOG Aspart Correctional Sugar Inj SQ SCH ×4 (00:46→17:19)
[2018-08-28] MEDS: Piperacil/Tazo 3.375 GM Premix 50 ML IV.SIG SCH ×4 (06:41→22:20)
--- NOTE | 2018-08-28 08:35 | P.HPGS ---
History of Present Illness Service: General Surgery Primary Care Physician: Erika Lama MD History of Present Illness: 53 yo F morbid obesity BMI 55, diabetes mellitus type II, HTN, hyperlipidemia with epigastric abdominal pain x 4-5 days which has progressively worsened in severity becoming severe over the weekend and prompting visit to ED. Pain was associated with nausea and vomiting. She has never had this pain in the past but was months ago. Past surgical history includes multiple C-sections and a lower midline laparotomy for tubal ligation. - Diagnosis (1) Acute cholecystitis Review of Systems All other systems reviewed negative except as stated in HPI [facility] - History History Provided By: Patient - Medical History Medical History: Medical History (Last Reviewed 08/27/18 @ 19:02 by Jayden Degroot RN) Arthritis Back pain Constipation Diabetes GERD (gastroesophageal reflux disease) Herniated disc, cervical High cholesterol Hypertension Hyperthyroidism Irritable bowel disease Neck pain Spinal stenosis Wears glasses - Surgical History Surgical History: Surgical History (Last Reviewed 08/27/18 @ 19:02 by Jayden Degroot RN) History of History of carpal tunnel surgery History of fusion of cervical spine History of tubal ligation - Tobacco History Second Hand Smoke Exposure: No Smoking Status: Never smoker - Alcohol History How Often Do You Have a Drink Containing Alcohol: Never - Substance Use History Substance History: No History of Abuse - Travel History Recent Travel in the [place] Within the Last 8 Weeks: No Recent Travel Out of the Country Within the Last 8 Weeks: No - Immunization History Tetanus Immunization: Unsure Medications and Allergies Active Medications: Active Medications Acetaminophen (Tylenol) 650 mg PO Q4H PRN PRN Reason: Temp > 100.4 Atorvastatin Calcium (Lipitor) 10 mg PO DAILY [facility] Cyclobenzaprine HCl (Flexeril) 10 mg PO TID PRN PRN Reason: Pain Dextrose (D50w Vial) 50 ml IV.PUSH UNSCH PRN PRN Reason: PER HYPOGLYCEMIA PROTOCOL Gabapentin (Neurontin) 300 mg PO TID EUN Glucagon (Glucagon Inj) 1 mg OTHER PRN PRN PRN Reason: for Hypoglycemia Protocol Sodium Chloride (Ns Inj) 1,000 mls @ 100 mls/hr IV.CONT .Q10H EUN Last Admin: 08/28/18 00:40 Dose: 100 mls/hr Piperacillin/Tazobactam/Dextrose (Zosyn 3.375 Gm Premix) 50 mls @ 100 mls/hr IV.SIG Q6H [facility] Last Admin: 08/28/18 06:41 Dose: 100 mls/hr Insulin Aspart (Novolog Insulin Correctional Sugar Inj) 0 unit SQ Q6HR [facility]; Protocol Last Admin: 08/28/18 06:45 Dose: Not Given Ketorolac Tromethamine (Toradol Inj) 30 mg IV.PUSH Q6H PRN PRN Reason: PAIN SCALE 1 TO 10 Last Admin: 08/28/18 00:40 Dose: 30 mg Labetalol HCl (Trandate) 100 mg PO BID [facility] Levothyroxine Sodium (Synthroid) 50 mcg PO DAILY [facility] Morphine Sulfate (Morphine Inj) 4 mg IV.PUSH Q4H PRN PRN Reason: BREAKTHROUGH PAIN Non-Formulary Medication (Lisinopril-Hydrochlorothiazide [Lisinopril- Hydrochlorothiazide]) 1 tab PO DAILY [facility] Ondansetron HCl (Zofran Inj) 4 mg IV.PUSH Q6H PRN PRN Reason: NAUSEA OR VOMITING Sodium Chloride (Ns Flush) 2 ml IV.FLUSH PRN PRN PRN Reason: FLUSH AFTER USING IV ACCESS Last Admin: 08/28/18 00:41 Dose: 2 ml Sodium Chloride (Ns Flush) 2 ml IV.FLUSH BID [facility] Sodium Chloride (Ns Flush) 2 ml IV.FLUSH PRN PRN PRN Reason: FLUSH AFTER USING IV ACCESS Allergies Allergy/AdvReac Type Severity Reaction Status Date / Time No Known Allergies Allergy Verified 08/27/18 19:02 Home Medications Medication Instructions Recorded Confirmed Type atorvastatin 10 mg PO DAILY 05/09/18 08/27/18 History cholecalciferol (vitamin D3) 1,000 unit PO DAILY 05/09/18 08/27/18 History [Vitamin D3] cyanocobalamin (vitamin B-12) 500 mcg PO DAILY 05/09/18 08/27/18 History [Vitamin B-12] cyclobenzaprine 10 mg PO TID PRN 05/09/18 08/27/18 History doxycycline hyclate 100 mg PO DAILY 05/09/18 08/27/18 History empagliflozin [Jardiance] 10 mg PO DAILY 05/09/18 08/27/18 History gabapentin 300 mg PO TID 05/09/18 08/27/18 History ipratropium bromide 2 spray INTRANASAL BID 05/09/18 08/27/18 History labetalol 100 mg PO BID 05/09/18 08/27/18 History levothyroxine 50 mcg PO DAILY 05/09/18 08/27/18 History lisinopril-hydrochlorothiazide 1 tab PO DAILY 05/09/18 08/27/18 History metformin 500 mg PO BID 05/09/18 08/27/18 History tramadol 50 mg PO Q4-6H PRN 05/09/18 08/27/18 History Exam Vital signs: Vital Signs 08/27/18 19:00 08/27/18 19:39 08/27/18 20:15 Temperature 97.3 F L Pulse Rate 101 H 94 H Respiratory Rate 18 18 Blood Pressure 221/95 H 167/66 H Pulse Oximetry 98 96 97 08/27/18 21:30 08/27/18 23:35 08/28/18 04:00 Temperature 98.9 F 98.1 F Pulse Rate 90 99 H 88 Respiratory Rate 17 18 18 Blood Pressure 145/65 H 147/67 H 119/59 L Pulse Oximetry 97 92 L 95 08/28/18 08:00 Temperature 98.1 F Pulse Rate 93 H Respiratory Rate 17 Blood Pressure 131/74 Pulse Oximetry 95 Intake & Output 08/27/18 08/28/18 08/28/18 18:59 06:59 18:59 Intake Total 550 / 550 Balance 550 / 550 Weight 154.8 kg Intake: IV 550 / 550 Zosyn 3.375 GM Premix 50 ML @ 50 / 50 100 mls/hr IV.SIG ONCE ONE Rx#: [id number] NS Inj 500 ML @ Wide Open IV. 500 / 500 SIG BOLUS ONE Rx#:[id number] Oral 0 / 0 Other: # Voids 0 Weight On Admission 154.2 kg Narrative: GENERAL: Awake and alert. No acute distress. Cooperative. Morbidly obese. HEAD: Normocephalic. Atraumatic. EYES: Pupils equal round and reactive to light bilaterally. No scleral icterus. ENT: Moist oral mucosa. NECK: Trachea midline. CHEST: Nonlabored breathing. No respiratory distress. CARDIOVASCULAR: Regular rate and rhythm. ABDOMEN: Morbidly obese. Midline scar. Moderate to severe tenderness in the right upper quadrant. EXTREMITIES: No cyanosis or edema. SKIN: Warm, dry, nonjaundiced. Results - Labs 08/28/18 10:22 08/27/18 19:20 Laboratory Results - last 24 hr 08/27/18 08/27/18 08/27/18 19:20 19:27 19:27 WBC 12.6 H RBC 4.77 Hgb 14.0 Hct 42.0 MCV 88.0 MCH 29.4 MCHC 33.4 RDW 14.0 Plt Count 361 MPV 8.6 Neut % (Auto) 75.8 H Lymph % (Auto) 16.1 [place] % (Auto) 5.5 Eos % (Auto) 2.1 Baso % (Auto) 0.5 Neut # (Auto) 9.5 H Lymph # (Auto) 2.0 [place] # (Auto) 0.7 Eos # (Auto) 0.3 Baso # (Auto) 0.1 WBC Differential . Differential Comment Auto diff final PT 9.5 L INR 0.9 APTT 26.6 Sodium 137 Potassium 3.9 Chloride 102 Carbon Dioxide 28.8 Anion Gap 6 BUN 14 Creatinine 0.94 Estimated GFR 62 L POC Glucose Random Glucose 115 H Calcium 9.1 Magnesium 2.2 Total Bilirubin 0.5 AST 22 ALT 35 Alkaline Phosphatase 113 Troponin I Less than 0.02 L C-Reactive Protein 1.10 H Total Protein 8.3 H Albumin 3.8 Lipase 143 Urine Color Urine Clarity Urine pH Ur Specific [place] Urine Protein Urine Glucose (UA) Urine Ketones Urine Occult Blood Urine Nitrate Urine Bilirubin Urine Urobilinogen Ur Leukocyte Esterase Urine RBC Urine WBC Ur Squamous Epith Cells Urine Bacteria Urine Mucus Micro UA Comment Ur Microscopic Review Urine Culture Comments 08/27/18 08/28/18 08/28/18 19:47 00:27 06:44 WBC RBC Hgb Hct MCV MCH MCHC RDW Plt Count MPV Neut % (Auto) Lymph % (Auto) [place] % (Auto) Eos % (Auto) Baso % (Auto) Neut # (Auto) Lymph # (Auto) [place] # (Auto) Eos # (Auto) Baso # (Auto) WBC Differential Differential Comment PT INR APTT Sodium Potassium Chloride Carbon Dioxide Anion Gap BUN Creatinine Estimated GFR POC Glucose 147 H 136 H Random Glucose Calcium Magnesium Total Bilirubin AST ALT Alkaline Phosphatase Troponin I C-Reactive Protein Total Protein Albumin Lipase Urine Color Yellow Urine Clarity Clear Urine pH 5.0 Ur Specific [place] 1.014 Urine Protein Negative Urine Glucose (UA) 500 or greater Urine Ketones Negative Urine Occult Blood Negative Urine Nitrate Negative Urine Bilirubin Negative Urine Urobilinogen Less than 2 Ur Leukocyte Esterase Negative Urine RBC Less than 1 Urine WBC 1 Ur Squamous Epith Cells 1 Urine Bacteria Rare H Urine Mucus Few H Micro UA Comment Culture not ind Ur Microscopic Review Not Reportable Urine Culture Comments Culture not ind - Imaging Imaging: ITS Impressions Chest X-Ray 08/27/18 19:20 CONCLUSION: No acute cardiopulmonary abnormality is identified. Abdomen/Pelvis CT 08/27/18 19:57 CONCLUSION: 1. Distended gallbladder containing multiple stones with suspected wall edema and mild surrounding inflammation. Findings are suspicious for acute cholecystitis. 2. Mild atherosclerotic disease. CT scan - abdomen: report reviewed, image reviewed CT scan - pelvis: report reviewed, image reviewed Caprini VTE Risk Assessment Caprini VTE Risk Assessment: No/Low Risk (score <= 1) Caprini Risk Assessment Model: Point Value = 1 Point Value = 2 Point Value = 3 Point Value = 5 Age 41-60 Minor surgery BMI > 25 kg/m2 Swollen legs Varicose veins or History of unexplained or recurrent spontaneous Oral contraceptives or hormone replacement Sepsis (< 1 month) Serious lung disease, including pneumonia (< 1 month) Abnormal pulmonary function Acute myocardial infarction Congestive heart failure (< 1 month) History of inflammatory bowel disease Medical patient at bed rest Age 61-74 Arthroscopic surgery Major open surgery (> 45 min) Laparoscopic surgery (> 45 min) Malignancy Confined to bed (> 72 hours) Immobilizing plaster cast Central venous access Age >= 75 History of VTE Family history of VTE Factor V Leiden Prothrombin 19120A Lupus anticoagulant Anticardiolipin antibodies Elevated serum homocysteine Heparin-induced thrombocytopenia Other congenital or acquired thrombophilia Stroke (< 1 month) Elective arthroplasty Hip, pelvis, or leg fracture Acute spinal cord injury (< 1 month) Prophylaxis Regimen: Total Risk Factor Score Risk Level Prophylaxis Regimen 0-1 Low Early ambulation 2 Moderate Order ONE of the following: *Sequential Compression Device (SCD) *Heparin 5000 units SQ BID 3-4 Higher Order ONE of the following medications: *Heparin 5000 units SQ TID *Enoxaparin/Lovenox 40 mg SQ daily (WT < 150 kg, CrCl > 30 mL/min) *Enoxaparin/Lovenox 30 mg SQ daily (WT < 150 kg, CrCl > 10-29 mL/min) *Enoxaparin/Lovenox 30 mg SQ BID (WT < 150 kg, CrCl > 30 mL/min) AND/OR *Sequential Compression Device (SCD) 5 or more Highest Order ONE of the following medications: *Heparin 5000 units SQ TID (Preferred with Epidurals) *Enoxaparin/Lovenox 40 mg SQ daily (WT < 150 kg, CrCl > 30 mL/min) *Enoxaparin/Lovenox 30 mg SQ daily (WT < 150 kg, CrCl > 10-29 mL/min) *Enoxaparin/Lovenox 30 mg SQ BID (WT < 150 kg, CrCl > 30 mL/min) AND *Sequential Compression Device (SCD) Assessment and Plan - Assessment (1) Acute cholecystitis Code(s): K81.0 - Acute cholecystitis Status: Acute - Plan 53 yo F with acute cholecystitis. Pain has been for 4-5 days. She is morbidly obese with BMI 55. Will attempt nonop management at this time with IV antibiotics and plan surgery in approx 6 weeks. H&P: Quality - VTE Deep Vein Thrombosis/Pulmonary Embolism Present on Admission: No
[2018-08-28] MEDS ORDERED: Non-Formulary Drug (Lisinopril-Hydrochlorothiazide [Lisinopril-Hydrochlorothiazide] 1 TAB) PO SCH (09:00)
[2018-08-28 11:06] LABS: Baso % (Auto) 0.3 % (0.0-2.0); Eos % (Auto) 0.5 % (0.0-4.0); Hematocrit 36.9 % (35.0-46.0); Hemoglobin 12.5 gm/dL (11.6-15.3); Lymph # (Auto) 1.6 th/mm3 (1.0-4.8); Lymph % (Auto) 15.3 % (9.0-44.0); Mean Corpuscular HGB Conc 33.9 % (32.0-36.0); Mean Corpuscular Hemoglobin 30.3 pg (27.0-34.0); Mean Corpuscular Volume 89.4 fL (80.0-100.0); Mean Platelet Volume 8.6 fL (7.0-11.0); Mono # (Auto) 0.7 th/mm3 (0.0-0.9); Mono % (Auto) 7.1 % (0.0-8.0); Neut % (Auto) 76.8 % (16.0-70.0); Platelet Count 258 th/mm3 (150-450); Red Blood Count 4.12 mil/mm3 (4.00-5.30); White Blood Count 10.5 th/mm3 (4.0-11.0)
[2018-08-28] MEDS: Gabapentin 300 MG Capsule PO SCH ×3 (12:08→18:39)
[2018-08-28] MEDS: Lisinopril 20 MG Tablet PO SCH (12:08)
[2018-08-28] MEDS: Labetalol 100 MG Tablet PO SCH ×2 (12:09→20:25)
[2018-08-28] MEDS: Levothyroxine 50 MCG Tablet PO SCH (12:15)
[2018-08-28] MEDS: hydroCHLOROthiazide 25 MG Tablet PO SCH (12:15)
--- NOTE | 2018-08-28 13:55 | US ---
EXAM DATE: 08/28/2018 1:33 PM EST AGE/SEX: 53 years / Female INDICATIONS: Abdominal pain with nausea and vomiting. Abnormal abdomen CT demonstrating a distended gallbladder with multiple gallstones. CLINICAL DATA: This is the patient's initial encounter. Patient reports that signs and symptoms have been present for 4 - 6 days and indicates a pain score of 5/10. MEDICAL/SURGICAL HISTORY: Diabetes. Hypertension. Arthritis. GERD. Hyperlipidemia. IBS. Spin al stenosis. Hyperthyroidism. section. Tubal ligation. Cervical spine fusion. Carpal tunne l release. COMPARISON: [facility] [place], CT ABDOMEN & PELVIS W CONTRAST, 08/27/2018. . MEASUREMENTS: Liver:__ 18.3 cm. Common Bile Duct:__ 7mm. FINDINGS: Suboptimal examination with limited visualization due to the patient's body habitus and ove rlying bowel gas. Liver: Liver is prominent measuring up to 18.3 cm with diffuse increased echogenicity. Portions of t he liver were not well visualized or evaluated. No focal mass or ductal dilatation is identified. Portal Vein: Hepatopedal flow seen in portal vein. Common Duct: No intraluminal mass or stone visualized. Only a small portion of the duct could be vis ualized. Gallbladder: Cholelithiasis is present with multiple echogenic gallstones. The largest measures up t o approximately 2 cm. There is apparent sludge as well. There are areas of posterior shadowing. The g allbladder wall is mildly prominent measuring up to 7 mm with small amount of pericholecystic fluid. Pancreas: Not well visualized. Right Kidney: Normal echogenicity and cortical thickness. No mass or hydronephrosis. Other: None. CONCLUSION: 1. Cholelithiasis with mild gallbladder wall thickening and pericholecystic fluid. Gallbladder sludg e is present as well. 2. Common bile duct is at the upper limits of normal in size with no visualized choledocholithiasis. Only a small portion of the duct was visualized. 3. Enlarged liver with findings most characteristic of hepatic steatosis. 4. Suboptimal study. Electronically signed by: Davey Castillo MD 08/28/2018 1:54 PM EST
[2018-08-28] MEDS: Acetaminophen 325 MG Tablet PO PRN ×2 (20:25→23:59)
[2018-08-29] MEDS: Sod Chloride 0.9% Inj 1,000 ML IV.CONT SCH ×2 (00:02→05:59)
[2018-08-29] MEDS: Insulin NovoLOG Aspart Correctional Sugar Inj SQ SCH ×3 (01:19→19:47)
[2018-08-29] MEDS: Piperacil/Tazo 3.375 GM Premix 50 ML IV.SIG SCH ×4 (05:00→22:44)
[2018-08-29] MEDS: Ketorolac Inj 30 MG/ML (IVP) Vial IV.PUSH PRN (05:00)
[2018-08-29] MEDS: Levothyroxine 50 MCG Tablet PO SCH (05:00)
[2018-08-29] MEDS: hydroCHLOROthiazide 25 MG Tablet PO SCH (08:02)
[2018-08-29] MEDS: Labetalol 100 MG Tablet PO SCH ×2 (08:03→22:44)
[2018-08-29] MEDS: Lisinopril 20 MG Tablet PO SCH (08:03)
[2018-08-29] MEDS: Gabapentin 300 MG Capsule PO SCH ×3 (08:03→18:15)
--- NOTE | 2018-08-29 10:46 | P.PNGS ---
Subjective Interval history: C/o persistent pain but somewhat improved. No nausea or vomiting with clears. U/ s showed stones, mild wall thickening, pericholecystic fluid, and mildly dilated common duct. Physical Exam Vital signs: Vital Signs 08/28/18 10:59 08/28/18 15:32 08/28/18 20:00 Temperature 98.5 F 97.6 F 101.8 F H Pulse Rate 85 93 H 106 H Respiratory Rate 17 17 20 Blood Pressure 127/57 L 132/69 150/89 H Pulse Oximetry 94 L 97 94 L 08/28/18 21:00 08/29/18 00:00 08/29/18 00:09 Temperature 101.0 F H 97.9 F 99.5 F Pulse Rate 99 H Respiratory Rate 18 Blood Pressure 129/59 L Pulse Oximetry 93 L 08/29/18 05:05 08/29/18 08:00 Temperature 99.0 F 98.3 F Pulse Rate 95 H Respiratory Rate 17 Blood Pressure 136/51 L Pulse Oximetry 94 L Intake & Output 08/28/18 08/29/18 08/29/18 18:59 06:59 18:59 Intake Total 1150 / 1150 1100 / 1100 Balance 1150 / 1150 1100 / 1100 Weight 158.3 kg Intake: IV 1150 / 1150 1100 / 1100 NS Inj 1,000 ML @ 100 mls/hr IV 1000 / 1000 1000 / 1000 .CONT .Q10H EUN Rx#:[id number] Zosyn 3.375 GM Premix 50 ML @ 150 / 150 100 / 100 100 mls/hr IV.SIG Q6H EUN Rx#: [id number] Other: # Voids 2 1 Date of Last Bowel Movement 08/27/18 08/27/18 Narrative: Abd: obese, mod-severe RUQ ttp Results - Labs 08/28/18 10:22 08/27/18 19:20 Laboratory Results - last 24 hr 08/28/18 08/28/18 08/28/18 10:22 12:09 16:33 WBC 10.5 RBC 4.12 Hgb 12.5 Hct 36.9 MCV 89.4 MCH 30.3 MCHC 33.9 RDW 14.0 Plt Count 258 MPV 8.6 Neut % (Auto) 76.8 H Lymph % (Auto) 15.3 [place] % (Auto) 7.1 Eos % (Auto) 0.5 Baso % (Auto) 0.3 Neut # (Auto) 8.0 H Lymph # (Auto) 1.6 [place] # (Auto) 0.7 Eos # (Auto) 0.0 Baso # (Auto) 0.0 WBC Differential . Differential Comment Auto diff final POC Glucose 114 H 180 H 08/29/18 08/29/18 01:08 04:59 WBC RBC Hgb Hct MCV MCH MCHC RDW Plt Count MPV Neut % (Auto) Lymph % (Auto) [place] % (Auto) Eos % (Auto) Baso % (Auto) Neut # (Auto) Lymph # (Auto) [place] # (Auto) Eos # (Auto) Baso # (Auto) WBC Differential Differential Comment POC Glucose 150 H 149 H - Imaging Imaging: ITS Impressions Chest X-Ray 08/27/18 19:20 CONCLUSION: No acute cardiopulmonary abnormality is identified. Abdomen/Pelvis CT 08/27/18 19:57 CONCLUSION: 1. Distended gallbladder containing multiple stones with suspected wall edema and mild surrounding inflammation. Findings are suspicious for acute cholecystitis. 2. Mild atherosclerotic disease. Gallbladder Ultrasound 08/28/18 00:00 CONCLUSION: 1. Cholelithiasis with mild gallbladder wall thickening and pericholecystic fluid. Gallbladder sludge is present as well. 2. Common bile duct is at the upper limits of normal in size with no visualized choledocholithiasis. Only a small portion of the duct was visualized. 3. Enlarged liver with findings most characteristic of hepatic steatosis. 4. Suboptimal study. Assessment and Plan - Assessment (1) Acute cholecystitis Code(s): K81.0 - Acute cholecystitis Status: Acute - Plan 53 yo F with acute cholecystitis. Pain has been for 4-5 days. She is morbidly obese with BMI 55. Low fat diet. Recheck labs in am. If pain controlled in am and tolerating diet will plan dc home tomorrow on PO antibiotics.
[2018-08-29] MEDS: Acetaminophen 325 MG Tablet PO PRN ×2 (14:29→22:43)
[2018-08-30] MEDS: Insulin NovoLOG Aspart Correctional Sugar Inj SQ SCH ×5 (01:36→23:41)
[2018-08-30 05:10] LABS: Baso # (Auto) 0.1 th/mm3 (0.0-0.2); Baso % (Auto) 0.6 % (0.0-2.0); Eos # (Auto) 0.1 th/mm3 (0.0-0.4); Eos % (Auto) 0.5 % (0.0-4.0); Hematocrit 32.5 % (35.0-46.0); Hemoglobin 10.9 gm/dL (11.6-15.3); Lymph % (Auto) 14.1 % (9.0-44.0); Mean Corpuscular HGB Conc 33.5 % (32.0-36.0); Mean Corpuscular Volume 89.5 fL (80.0-100.0); Mean Platelet Volume 8.5 fL (7.0-11.0); Mono # (Auto) 0.9 th/mm3 (0.0-0.9); Mono % (Auto) 6.3 % (0.0-8.0); Neut # (Auto) 11.2 th/mm3 (1.8-7.7); Neut % (Auto) 78.5 % (16.0-70.0); Platelet Count 242 th/mm3 (150-450); Red Blood Count 3.63 mil/mm3 (4.00-5.30); Red Cell Distribution Width 14.5 % (11.6-17.2); White Blood Count 14.2 th/mm3 (4.0-11.0)
[2018-08-30 05:42] LABS: Alanine Aminotransferase 38 U/L (10-53); Albumin 2.5 g/dL (3.4-5.0); Alkaline Phosphatase 128 U/L (45-117); Anion Gap 7 meq/L (5-15); Aspartate Aminotransferase 32 U/L (15-37); Blood Urea Nitrogen 9 mg/dL (7-18); Calcium 8.1 mg/dL (8.5-10.1); Carbon Dioxide 29.1 meq/L (21.0-32.0); Chloride 106 meq/L (98-107); Glomerular Filtration Rate 53 mL/min (>89); Glucose,Random 131 mg/dL (74-106); Potassium 3.5 meq/L (3.5-5.1); Sodium 142 meq/L (136-145)
[2018-08-30] MEDS: Piperacil/Tazo 3.375 GM Premix 50 ML IV.SIG SCH ×4 (08:09→22:32)
[2018-08-30] MEDS: Levothyroxine 50 MCG Tablet PO SCH (08:10)
[2018-08-30] MEDS: hydroCHLOROthiazide 25 MG Tablet PO SCH (08:36)
[2018-08-30] MEDS: Lisinopril 20 MG Tablet PO SCH (08:37)
[2018-08-30] MEDS: Labetalol 100 MG Tablet PO SCH ×2 (08:37→20:07)
[2018-08-30] MEDS: Gabapentin 300 MG Capsule PO SCH ×3 (08:38→17:07)
--- NOTE | 2018-08-30 09:29 | P.PNGS ---
Subjective Interval history: Pain is the same, moderate. She is tolerating some diet. Persistent fevers and WBC went up to 15 today. Physical Exam Vital signs: Vital Signs 08/29/18 12:00 08/29/18 16:00 08/29/18 20:00 Temperature 100.2 F H 99 F 98.1 F Pulse Rate 99 H 97 H 99 H Respiratory Rate 17 17 20 Blood Pressure 158/56 H 129/59 L 137/63 Pulse Oximetry 92 L 97 95 08/30/18 00:00 08/30/18 04:00 08/30/18 08:00 Temperature 100.9 F H 99.1 F 99.4 F Pulse Rate 101 H 88 95 H Respiratory Rate 20 20 24 Blood Pressure 120/54 L 110/53 L 140/64 Pulse Oximetry 93 L 94 L 93 L Intake & Output 08/29/18 08/30/18 08/30/18 18:59 06:59 18:59 Intake Total 820 / 820 Balance 820 / 820 Weight 158.7 kg Intake: IV 100 / 100 Zosyn 3.375 GM Premix 50 ML @ 100 / 100 100 mls/hr IV.SIG Q6H EUN Rx#: [id number] Oral 720 / 720 Other: # Voids 4 4 Date of Last Bowel Movement 08/29/18 08/29/18 # Bowel Movements 2 2 Narrative: NAD, comfortable in bed Abd: obese, moderate RUQ ttp Results - Labs 08/30/18 04:04 08/30/18 04:04 Laboratory Results - last 24 hr 08/29/18 08/30/18 08/30/18 12:29 01:28 04:04 WBC 14.2 H RBC 3.63 L Hgb 10.9 L Hct 32.5 L MCV 89.5 MCH 30.0 MCHC 33.5 RDW 14.5 Plt Count 242 MPV 8.5 Neut % (Auto) 78.5 H Lymph % (Auto) 14.1 [place] % (Auto) 6.3 Eos % (Auto) 0.5 Baso % (Auto) 0.6 Neut # (Auto) 11.2 H Lymph # (Auto) 2.0 [place] # (Auto) 0.9 Eos # (Auto) 0.1 Baso # (Auto) 0.1 WBC Differential . Differential Comment Auto diff final Sodium Potassium Chloride Carbon Dioxide Anion Gap BUN Creatinine Estimated GFR POC Glucose 166 H 188 H Random Glucose Calcium Total Bilirubin AST ALT Alkaline Phosphatase Total Protein Albumin 08/30/18 04:04 WBC RBC Hgb Hct MCV MCH MCHC RDW Plt Count MPV Neut % (Auto) Lymph % (Auto) [place] % (Auto) Eos % (Auto) Baso % (Auto) Neut # (Auto) Lymph # (Auto) [place] # (Auto) Eos # (Auto) Baso # (Auto) WBC Differential Differential Comment Sodium 142 Potassium 3.5 Chloride 106 Carbon Dioxide 29.1 Anion Gap 7 BUN 9 Creatinine 1.08 H Estimated GFR 53 L POC Glucose Random Glucose 131 H Calcium 8.1 L Total Bilirubin 0.9 AST 32 ALT 38 Alkaline Phosphatase 128 H Total Protein 7.0 D Albumin 2.5 L - Imaging Imaging: ITS Impressions Chest X-Ray 08/27/18 19:20 CONCLUSION: No acute cardiopulmonary abnormality is identified. Abdomen/Pelvis CT 08/27/18 19:57 CONCLUSION: 1. Distended gallbladder containing multiple stones with suspected wall edema and mild surrounding inflammation. Findings are suspicious for acute cholecystitis. 2. Mild atherosclerotic disease. Gallbladder Ultrasound 08/28/18 00:00 CONCLUSION: 1. Cholelithiasis with mild gallbladder wall thickening and pericholecystic fluid. Gallbladder sludge is present as well. 2. Common bile duct is at the upper limits of normal in size with no visualized choledocholithiasis. Only a small portion of the duct was visualized. 3. Enlarged liver with findings most characteristic of hepatic steatosis. 4. Suboptimal study. Assessment and Plan - Assessment (1) Acute cholecystitis Code(s): K81.0 - Acute cholecystitis Status: Acute - Plan 53 yo F with acute cholecystitis. Pain has been for 4-5 days. She is morbidly obese with BMI 55. Persistent fevers. WBC increased. WIll request cholecystostomy tube. D/w patient and she is in agreement. Continue IV antibiotics.
[2018-08-30 11:23] LABS: INR 1.1 Ratio; Prothrombin Time 10.7 sec (9.8-11.6)
[2018-08-30] MEDS ORDERED: fentaNYL Citrate Inj 250 MCG/5 ML Ampul ONE (14:40)
[2018-08-30] MEDS ORDERED: Iohexol 350 MG/ML 50 ML Vial (for Rad Diag) IVCONTRAST ONE (15:50)
--- NOTE | 2018-08-30 16:31 | P.RAD ---
Post Procedure Progress Note - Procedure Information Procedure Date: 08/30/18 Supervising Radiologist: Ammon De Leon MD Estimated blood loss (mL): 5 Anesthesia: Conscious Sedation - Plan of Activity Patient to Unit: ROPU Patient Condition: Good See PACS Report for procedural detail/treatment.
[2018-08-30] MEDS: Ketorolac Inj 30 MG/ML (IVP) Vial IV.PUSH PRN (20:10)
[2018-08-31 05:24] LABS: Baso % (Auto) 0.3 % (0.0-2.0); Eos # (Auto) 0.1 th/mm3 (0.0-0.4); Eos % (Auto) 1.1 % (0.0-4.0); Hematocrit 32.6 % (35.0-46.0); Hemoglobin 10.9 gm/dL (11.6-15.3); Lymph % (Auto) 18.1 % (9.0-44.0); Mean Corpuscular HGB Conc 33.4 % (32.0-36.0); Mean Corpuscular Hemoglobin 29.9 pg (27.0-34.0); Mean Corpuscular Volume 89.5 fL (80.0-100.0); Mean Platelet Volume 8.6 fL (7.0-11.0); Mono # (Auto) 0.8 th/mm3 (0.0-0.9); Mono % (Auto) 7.4 % (0.0-8.0); Neut # (Auto) 8.1 th/mm3 (1.8-7.7); Neut % (Auto) 73.1 % (16.0-70.0); Platelet Count 262 th/mm3 (150-450); Red Blood Count 3.64 mil/mm3 (4.00-5.30); Red Cell Distribution Width 13.9 % (11.6-17.2)
[2018-08-31] MEDS: Insulin NovoLOG Aspart Correctional Sugar Inj SQ SCH ×3 (05:37→18:27)
[2018-08-31] MEDS: Levothyroxine 50 MCG Tablet PO SCH (05:37)
[2018-08-31] MEDS: Piperacil/Tazo 3.375 GM Premix 50 ML IV.SIG SCH ×4 (05:37→22:12)
[2018-08-31] MEDS: Ketorolac Inj 30 MG/ML (IVP) Vial IV.PUSH PRN ×3 (05:37→22:13)
[2018-08-31] MEDS: Gabapentin 300 MG Capsule PO SCH ×3 (10:02→18:18)
[2018-08-31] MEDS: hydroCHLOROthiazide 25 MG Tablet PO SCH (10:02)
[2018-08-31] MEDS: Acetaminophen 325 MG Tablet PO PRN ×2 (10:02→16:50)
[2018-08-31] MEDS: Lisinopril 20 MG Tablet PO SCH (10:03)
[2018-08-31] MEDS: Labetalol 100 MG Tablet PO SCH ×2 (10:03→20:17)
--- NOTE | 2018-08-31 11:18 | P.PNGS ---
Subjective Interval history: S/p cholecystostomy tube yesterday. Pain is still present but not too bad. Tolerating some diet. No more fevers. WBC mildly elevated at 11. Physical Exam Vital signs: Vital Signs 08/30/18 12:00 08/30/18 15:56 08/30/18 16:00 Temperature 99.2 F 99.6 F 99.5 F Pulse Rate 88 87 97 H Respiratory Rate 22 20 22 Blood Pressure 128/59 L 117/69 155/91 H Pulse Oximetry 93 L 97 93 L 08/30/18 16:13 08/30/18 19:58 08/30/18 23:04 Temperature 99.5 F 98.2 F Pulse Rate 87 107 H 87 Respiratory Rate 16 19 19 Blood Pressure 142/80 H 138/64 118/53 L Pulse Oximetry 98 95 95 08/31/18 03:11 08/31/18 08:00 Temperature 98.2 F 98.4 F Pulse Rate 79 86 Respiratory Rate 18 22 Blood Pressure 128/58 L 154/70 H Pulse Oximetry 96 97 Intake & Output 08/30/18 08/31/18 08/31/18 18:59 06:59 18:59 Intake Total 100 / 100 460 / 460 Output Total Balance 85 / 85 440 / 440 Weight 158.7 kg Intake: IV 100 / 100 100 / 100 Zosyn 3.375 GM Premix 50 ML @ 100 / 100 100 / 100 100 mls/hr IV.SIG Q6H EUN Rx#: [id number] Oral 360 / 360 Output: Wound Drainage Right T-Tube Other: # Voids 1 1 Date of Last Bowel Movement 08/29/18 08/29/18 08/31/18 # Bowel Movements 0 Narrative: Abd: obese, soft, moderate RUQ ttp, john tube with clear greenish orange drainage Results - Labs 08/31/18 04:07 08/30/18 04:04 Laboratory Results - last 24 hr 08/30/18 08/30/18 08/30/18 10:56 10:56 13:30 WBC RBC Hgb Hct MCV MCH MCHC RDW Plt Count MPV Neut % (Auto) Lymph % (Auto) [place] % (Auto) Eos % (Auto) Baso % (Auto) Neut # (Auto) Lymph # (Auto) [place] # (Auto) Eos # (Auto) Baso # (Auto) WBC Differential Differential Comment PT 10.7 INR 1.1 POC Glucose 150 H Lactic Acid 1.2 08/30/18 08/30/18 08/31/18 17:06 23:33 04:07 WBC 11.0 RBC 3.64 L Hgb 10.9 L Hct 32.6 L MCV 89.5 MCH 29.9 MCHC 33.4 RDW 13.9 Plt Count 262 MPV 8.6 Neut % (Auto) 73.1 H Lymph % (Auto) 18.1 [place] % (Auto) 7.4 Eos % (Auto) 1.1 Baso % (Auto) 0.3 Neut # (Auto) 8.1 H Lymph # (Auto) 2.0 [place] # (Auto) 0.8 Eos # (Auto) 0.1 Baso # (Auto) 0.0 WBC Differential . Differential Comment Auto diff final PT INR POC Glucose 119 H 222 H Lactic Acid 08/31/18 05:35 WBC RBC Hgb Hct MCV MCH MCHC RDW Plt Count MPV Neut % (Auto) Lymph % (Auto) [place] % (Auto) Eos % (Auto) Baso % (Auto) Neut # (Auto) Lymph # (Auto) [place] # (Auto) Eos # (Auto) Baso # (Auto) WBC Differential Differential Comment PT INR POC Glucose 124 H Lactic Acid - Imaging Imaging: ITS Impressions Chest X-Ray 08/27/18 19:20 CONCLUSION: No acute cardiopulmonary abnormality is identified. Abdomen/Pelvis CT 08/27/18 19:57 CONCLUSION: 1. Distended gallbladder containing multiple stones with suspected wall edema and mild surrounding inflammation. Findings are suspicious for acute cholecystitis. 2. Mild atherosclerotic disease. Gallbladder Ultrasound 08/28/18 00:00 CONCLUSION: 1. Cholelithiasis with mild gallbladder wall thickening and pericholecystic fluid. Gallbladder sludge is present as well. 2. Common bile duct is at the upper limits of normal in size with no visualized choledocholithiasis. Only a small portion of the duct was visualized. 3. Enlarged liver with findings most characteristic of hepatic steatosis. 4. Suboptimal study. Assessment and Plan - Assessment (1) Acute cholecystitis Code(s): K81.0 - Acute cholecystitis Status: Acute - Plan 53 yo F with acute cholecystitis. Pain has been for 4-5 days. She is morbidly obese with BMI 55. S/p john tube placement 08/30/18. STable this am. Continue IV antibiotics. She will stay to be sure tube is effectively treating. Likely dc home tomorrow with PO antibiotics.
--- NOTE | 2018-08-31 13:51 | IR ---
EXAM DATE: 08/31/2018 11:20 AM EST AGE/SEX: 53 years / Female INDICATIONS: Patient presents with cholecystitis in need of a cholecystostomy tube. CLINICAL DATA: This is the patient's initial encounter. Patient reports that signs and symptoms have been present for 4 - 6 days and indicates a pain score of 7/10. MEDICAL/SURGICAL HISTORY: Diabetes. Hypertension. Gastroesophageal reflux disease. Arthritis , Hyperlipidemia, IBS, Spinal Stenosis, Hyperthyroidism section. Tubal ligation. Cervical Spine Fusion COMPARISON: No prior exams available for comparison. FLUORO TIME (min): 2.0 IMAGE SERIES: 4 SEDATION TIME (min): 30 CONTRAST (cc): 10cc Omnipaque (iohexol) 350 MEDICATION(S): 3mg midazolam (Versed) IV 150mcg fentanyl (Sublimaze) IV Collin Locking DEVICE(S): 8 Albanian . . PROCEDURE: 1. Ultrasound guided puncture of the gallbladder. 2. Percutaneous cholangiogram. 3. Percutaneous cholecystostomy tube placement. 4. Conscious sedation with continuous EKG and oximetry monitoring. The risks, benefits and alternatives to the procedure were explained and verbal and written consent w as obtained. The site was prepped in sterile fashion. Full sterile technique was used, including ca p, mask, sterile gloves and gown and a large sterile sheet. Hand hygiene and 2% chlorhexidine and/or betadine/alcohol prep was utilized per protocol for cutaneous antisepsis. Sterile gel and sterile p robe cover were utilized for ultrasound guidance. The skin and subcutaneous tissues were infiltrated with local anesthetic solution. With ultrasound and fluoroscopic guidance the gallbladder was punctured with a micropuncture set and a 4 Albanian dilator was placed. Injection of positive contrast demonstrates position within the gallb ladder. A 0.035 guidewire was placed within the gallbladder lumen and dilatation was performed to ac cept the prescribed catheter. Conscious sedation was performed with the prescribed dosages and duration as above in the presence of an independent trained radiology nurse to assist in the monitoring of the patient. EKG and oximetry remained stable throughout the procedure. The patient tolerated the procedure well and there were n o complications. The patient was sent to post anesthesia recovery in stable condition. CONCLUSION: 1. Uncomplicated percutaneous cholecystostomy as above. 2. The gallbladder is filled with stones. Electronically signed by: Ammon De Leon MD Board Certified Radiologist 08/31/2018 1:50 PM DELICIA Purvis
[2018-09-01] MEDS: Insulin NovoLOG Aspart Correctional Sugar Inj SQ SCH ×3 (01:11→13:23)
[2018-09-01 05:20] LABS: Baso # (Auto) 0.1 th/mm3 (0.0-0.2); Baso % (Auto) 0.7 % (0.0-2.0); Eos # (Auto) 0.4 th/mm3 (0.0-0.4); Eos % (Auto) 4.8 % (0.0-4.0); Hematocrit 35.1 % (35.0-46.0); Hemoglobin 11.8 gm/dL (11.6-15.3); Lymph # (Auto) 1.9 th/mm3 (1.0-4.8); Lymph % (Auto) 24.6 % (9.0-44.0); Mean Corpuscular HGB Conc 33.6 % (32.0-36.0); Mean Corpuscular Hemoglobin 30.1 pg (27.0-34.0); Mean Corpuscular Volume 89.5 fL (80.0-100.0); Mean Platelet Volume 8.1 fL (7.0-11.0); Mono # (Auto) 0.6 th/mm3 (0.0-0.9); Mono % (Auto) 7.3 % (0.0-8.0); Neut # (Auto) 4.9 th/mm3 (1.8-7.7); Neut % (Auto) 62.6 % (16.0-70.0); Platelet Count 310 th/mm3 (150-450); Red Blood Count 3.92 mil/mm3 (4.00-5.30); Red Cell Distribution Width 14.3 % (11.6-17.2); White Blood Count 7.8 th/mm3 (4.0-11.0)
[2018-09-01] MEDS: Ketorolac Inj 30 MG/ML (IVP) Vial IV.PUSH PRN ×2 (05:39→13:22)
[2018-09-01] MEDS: Levothyroxine 50 MCG Tablet PO SCH (05:40)
[2018-09-01] MEDS: Piperacil/Tazo 3.375 GM Premix 50 ML IV.SIG SCH ×2 (05:42→10:39)
[2018-09-01] MEDS: hydroCHLOROthiazide 25 MG Tablet PO SCH (09:09)
[2018-09-01] MEDS: Gabapentin 300 MG Capsule PO SCH ×2 (09:09→13:22)
[2018-09-01] MEDS: Lisinopril 20 MG Tablet PO SCH (09:09)
[2018-09-01] MEDS: Labetalol 100 MG Tablet PO SCH (09:09)
== END 2018-09-01 14:12 | disposition home or self-care (01) ==
LOC: NEDA 18:53 → NEPC 18:53 → N06 23:00
PROVIDERS: ADMIT Surgery; ATTEND Surgery